=== PATIENT | female | born 1950 | race Caucasian/White ===

== ENCOUNTER 2017-05-14 23:47 | Emergency (ER) | payer MEDICARE, OTHER ==
[2017-05-14] MEDS ORDERED: Ondansetron 4 MG/2 ML SDV IVPUSH PRN (23:55)
[2017-05-14] MEDS ORDERED: HYDROmorphone 1 MG/ML Syringe IVPUSH STA (23:55)
[2017-05-14] MEDS ORDERED: Sodium Chloride 0.9% 1,000 ML IV ONE (23:56)
--- NOTE | 2017-05-15 00:25 | EDM.PDOC ---
ED HPI GENERAL MEDICAL PROBLEM - General Chief Complaint: Genitourinary Problem Stated Complaint: kidney stone Time Seen by Provider: 05/15/17 00:10 Source of Information: Reports: Patient History Limitations: Reports: No Limitations - History of Present Illness INITIAL COMMENTS - FREE TEXT/NARRATIVE: Patient is a 66-year-old female who presents to the emergency department this morning with a complaint of left flank pain. Patient states that she does have a history of renal calculi bilaterally and noticed dark urine last couple days. Patient states that pain began at 2030 this evening and has progressively became worse. She is now nauseated and has vomited twice. Patient denies chest pain, shortness of breath, fever, or bowel changes. Onset: Today Onset Date: 05/15/17 Onset Time: 20:30 Location: Reports: Abdomen, Other (Left flank) Quality: Reports: Sharp Severity: Moderate Improves with: Reports: None Worsens with: Reports: None Context: Denies: Activity, Exercise, Lifting, Trauma Associated Symptoms: Reports: Nausea/Vomiting - Related Data Allergies Allergy/AdvReac Type Severity Reaction Status Date / Time Penicillins Allergy Severe Anaphylactic Verified 06/19/13 00:19 Shock prochlorperazine maleate Allergy Severe Itching Verified 06/19/13 00:22 [From Compazine] meperidine HCl [From Demerol] AdvReac Severe Hallucinati Verified 06/19/13 00:23 ons tamsulosin HCl [From Flomax] AdvReac Severe Nausea Verified 06/19/13 00:24 Home Meds: Home Meds Aspirin [Low Dose Aspirin EC] 81 mg PO DAILY 06/19/13 [History] Cholecalciferol (Vitamin D3) [Vitamin D] 1,000 unit PO DAILY 06/19/13 [History] Cyanocobalamin (Vitamin B12) [Vitamin B12] 100 mcg PO DAILY 06/19/13 [History] Folic Acid 1 mg PO DAILY 06/19/13 [History] Levothyroxine [Synthroid] 75 mcg PO DAILY #30 tablet 06/19/13 [Rx] Metoprolol Succinate [Toprol XL] 25 mg PO DAILY #30 tab 06/19/13 [Rx] Multivitamin [Multi Vitamin Daily] 1 each PO DAILY 06/19/13 [History] Vitamin B6-pyridOXINE [Vitamin B6] 250 mg PO DAILY 04/15/14 [History] Social & Family History - Alcohol Use Days Per Week of Alcohol Use: 0 - Recreational Drug Use Recreational Drug Use: No ED ROS GENERAL - Review of Systems Review Of Systems: ROS reveals no pertinent complaints other than HPI. Constitutional: Reports: No Symptoms HEENT: Reports: No Symptoms Respiratory: Reports: No Symptoms Cardiovascular: Reports: No Symptoms Endocrine: Reports: No Symptoms GI/Abdominal: Reports: Abdominal Pain : Reports: Flank Pain, Hematuria Musculoskeletal: Reports: No Symptoms Skin: Reports: No Symptoms Neurological: Reports: No Symptoms Psychiatric: Reports: No Symptoms Hematologic/Lymphatic: Reports: No Symptoms Immunologic: Reports: No Symptoms ED EXAM, RENAL/ - Physical Exam Exam: See Below Exam Limited By: No Limitations General Appearance: Alert, WD/WN, Mild Distress Throat/Mouth: Normal Inspection, Normal Oropharynx, No Airway Compromise Head: Atraumatic, Normocephalic Neck: Normal Inspection Respiratory/Chest: No Respiratory Distress, Lungs Clear, Normal Breath Sounds, No Accessory Muscle Use, Chest Non-Tender Cardiovascular: Regular Rate, Rhythm, No Murmur GI/Abdominal: Normal Bowel Sounds, Soft, Tender (Left lower quadrant) Back Exam: CVA Tenderness (L). No: CVA Tenderness (R) Extremities: Normal Inspection, No Pedal Edema Neurological: Alert, Oriented, Normal Cognition Psychiatric: Normal Affect, Normal Mood Skin Exam: Warm, Dry, Intact, Normal Color, No Rash Course - Orders/Labs/Meds Orders: Active Orders 24 hr Category Date Time Status Abdomen Pelvis wo Cont [CT] Stat Exams 05/14/17 23:53 Ordered CBC WITH AUTO DIFF [HEME] Stat Lab 05/14/17 23:54 Ordered CMP [COMPREHENSIVE METABOLIC PN,CMP] [CHEM] Stat Lab 05/14/17 23:54 Ordered UA W/MICROSCOPIC [URIN] Stat Lab 05/14/17 23:54 Ordered Ondansetron [Zofran] Med 05/14/17 23:55 Active 4 mg IVPUSH Q4H PRN Sodium Chloride 0.9% [Normal Saline] 1,000 ml Med 05/14/17 23:56 Active IV .BOLUS Medication Orders Sodium Chloride (Normal Saline) 1,000 mls @ 999 mls/hr IV .BOLUS ONE Stop: 05/15/17 00:56 Ondansetron HCl (Zofran) 4 mg IVPUSH Q4H PRN PRN Reason: Nausea/Vomiting Meds: Medications Generic Name Dose Route Start Last Admin Trade Name Freq PRN Reason Stop Dose Admin Sodium Chloride 1,000 mls @ 999 mls/hr 05/14/17 23:56 Normal Saline IV 05/15/17 00:56 .BOLUS ONE Ondansetron HCl 4 mg 05/14/17 23:55 Zofran IVPUSH Q4H PRN Nausea/Vomiting Discontinued Medications Generic Name Dose Route Start Last Admin Trade Name Freq PRN Reason Stop Dose Admin Hydromorphone HCl 0.5 mg 05/14/17 23:55 Dilaudid IVPUSH 05/14/17 23:56 NOW STA - Radiology Interpretation Free Text/Narrative:: CT scan without contrast of abdomen and pelvis shows left-sided hydronephrosis and 8 mm left UPJ calculus. Extensive left perinephritic and juan antonio-ureteral stranding. CT Results Date: 05/15/17 CT Results Time: 01:00 - Re-Assessments/Exams Free Text/Narrative Re-Assessment/Exam: 05/15/17 01:28 Patient afebrile, nontoxic appearing, vital signs stable, pain controlled. Discussed case with Dr. Roque, urologist, and Dr. Streeter, hospitalist at [facility]. They will accept transfer of care. Departure - Departure Time of Disposition: 01:31 Disposition: DC/Tfer to Acute Hospital 02 Condition: Fair Clinical Impression: UTI, Urinary tract infectious disease, Kidney stone Hydronephrosis Qualifiers: Hydronephrosis type: with renal calculous obstruction Qualified Code(s): N13.2 - Hydronephrosis with renal and ureteral calculous obstruction - Discharge Information - My Orders Last 24 Hours: My Active Orders 05/14/17 23:53 Abdomen Pelvis wo Cont [CT] Stat 05/14/17 23:54 CBC WITH AUTO DIFF [HEME] Stat CMP [COMPREHENSIVE METABOLIC PN,CMP] [CHEM] Stat UA W/MICROSCOPIC [URIN] Stat 05/14/17 23:55 Ondansetron [Zofran] 4 mg IVPUSH Q4H PRN 05/14/17 23:56 Sodium Chloride 0.9% [Normal Saline] 1,000 ml IV .BOLUS - Assessment/Plan Last 24 Hours: My Active Orders 05/14/17 23:53 Abdomen Pelvis wo Cont [CT] Stat 05/14/17 23:54 CBC WITH AUTO DIFF [HEME] Stat CMP [COMPREHENSIVE METABOLIC PN,CMP] [CHEM] Stat UA W/MICROSCOPIC [URIN] Stat 05/14/17 23:55 Ondansetron [Zofran] 4 mg IVPUSH Q4H PRN 05/14/17 23:56 Sodium Chloride 0.9% [Normal Saline] 1,000 ml IV .BOLUS Assessment:: Renal calculi, UTI Plan: Transferred to [place]
[2017-05-15] MEDS ORDERED: HYDROmorphone 1 MG/ML Syringe IVPUSH ONE (00:33)
[2017-05-15 00:38] LABS: CHLORIDE,CL 104 mmol/L (98-115); SODIUM,NA 141 mmol/L (136-145)
[2017-05-15] MEDS ORDERED: cefTRIAXone 1 GM Vial IVPUSH ONE (01:10)
[2017-05-15] MEDS ORDERED: Sodium Chloride 0.9% 1,000 ML IV SCH (01:15)
[2017-05-15] MEDS: Sodium Chloride 0.9% 1,000 ML ONE ×2 (01:58→22:30)
== END 2017-05-15 01:59 ==
LOC: KA.ED 23:47
DX: N39.0 Urinary tract infection, site not specified (principal); N13.2 Hydronephrosis with renal and ureteral calculous obstruction; Z79.82 Long term (current) use of aspirin; Z79.899 Other long term (current) drug therapy; Z88.8 Allergy status to other drugs, medicaments and biological substances; Z88.5 Allergy status to narcotic agent; Z88.0 Allergy status to penicillin
CPT/HCPCS: 36415; 74176; 80053; 81001; 85025; 87086; 87088; 96361; 96374; 96375; 99285; J0696; J1170; J2405; J7030; 99284

== ENCOUNTER 2024-12-22 09:05 | Emergency (ER) | payer MEDICARE ==
[2024-12-22 09:32] LABS: APPEARANCE,URINE SLIGHTLY CLOUDY (CLEAR); GLUCOSE,URINE NEGATIVE (NEGATIVE); OCCULT BLOOD,URINE LARGE (NEGATIVE)
[2024-12-22 09:33] LABS: EPITHELIAL CELLS,URINE RARE /LPF
== END 2024-12-22 09:59 | disposition home or self-care (01) ==
LOC: KA.ED 09:05
DX: N30.00 Acute cystitis without hematuria (principal); E03.9 Hypothyroidism, unspecified; Z88.0 Allergy status to penicillin; Z88.8 Allergy status to other drugs, medicaments and biological substances; Z79.890 Hormone replacement therapy; Z79.899 Other long term (current) drug therapy; Z90.49 Acquired absence of other specified parts of digestive tract; Z90.710 Acquired absence of both cervix and uterus
CPT/HCPCS: 81001; 87086; 87088; 87186; 99283; 99284